=== PATIENT | female | born 1990 | race American Indian/Alaskan Native ===

== ENCOUNTER 2018-09-09 19:30 | Emergency (ER) | payer OTHER ==
[2018-09-09 20:11] VITALS: BP 191/120
--- NOTE | 2018-09-09 20:13 | Event Note ---
ED Screening Note Date of service: 09/09/18 Time: 20:13 ED Screening Note: 28 y/o female complains of Chest pain, SOB. Elevated blood pressure. This initial assessment/diagnostic orders/clinical plan/treatment(s) is/are subject to change based on patients health status, clinical progression and re- assessment by fellow clinical providers in the ED. Further treatment and workup at subsequent clinical providers discretion. Patient/guardian urged not to elope from the ED as their condition may be serious if not clinically assessed and managed. Initial orders include: <MEAGAN MORENO - Last Filed: 09/09/18 20:08> ED Screening Note: A physician and/or other qualified medical personnel has recommended that the patient receive further examination and/or treatment beyond their Medical Screening Exam. The risks and benefits were explained. The patient was informed of their right to emergency care. Patient left before final disposition of their medical condition. This note has been generated by me, Dr. Carmenza Bucio III, MD, the [employer] for the emergency department. I have not seen this patient personally. <CARMENZA BUCIO - Last Filed: 09/20/18 08:46>
[2018-09-09 20:54] LABS: Basophils # (Auto) 0.1 K/mm3 (0.0-0.1); Basophils % (Auto) 0.5 % (0.0-1.8); Eosinophils # (Auto) 0.2 K/mm3 (0.0-0.4); Eosinophils % (Auto) 1.2 % (0.0-4.3); Hematocrit 37.3 % (30.3-42.9); Lymphocytes # (Auto) 4.1 K/mm3 (1.2-5.4); Lymphocytes % (Auto) 29.9 % (13.4-35.0); Mean Corpuscular HGB Conc 35 % (30-34); Mean Corpuscular Volume 74 fl (79-97); Monocytes # (Auto) 0.9 K/mm3 (0.0-0.8); Monocytes % (Auto) 6.6 % (0.0-7.3); Platelet Count 409 K/mm3 (140-440); Red Blood Count 5.01 M/mm3 (3.65-5.03); Red Cell Distribution Width 15.9 % (13.2-15.2)
[2018-09-09 21:31] LABS: Alanine Aminotransferase 15 units/L (7-56); BUN/Creatinine Ratio 12; Blood Urea Nitrogen 12 mg/dL (7-17); Calcium 9.8 mg/dL (8.4-10.2); Hemolysis Index 25
[2018-09-09] MEDS ORDERED: TYLENOL PO ONE (22:14)
== END 2018-09-10 01:15 | disposition left against medical advice (07) ==
LOC: ED 19:30
DX: R07.9 Chest pain, unspecified (principal); R06.02 Shortness of breath; Z53.21 Procedure and treatment not carried out due to patient leaving prior to being seen by health care provider
CPT/HCPCS: 36415; 80053; 84484; 84703; 85025; 93005; 93010